=== PATIENT | female | born 1940 | race Caucasian/White ===

== ENCOUNTER 2020-03-10 18:09 | Emergency (ER) | payer OTHER ==
[~2020-03-10] VITALS: Ht 165.1 cm; Wt 74.8 kg
[~2020-03-10 18:09] MED LIST: ATENOLOL25 MG PO; SINGULAIR10 MG PO
[2020-03-10] MEDS ORDERED: CLARITIN10 M2 (18:30)
[2020-03-10] MEDS ORDERED: AMLODIPINE-OLM1 EAC2 (18:31)
[2020-03-10] MEDS ORDERED: DURACHOL 3,7751 EACH (18:31)
[2020-03-10] MEDS ORDERED: GALANTAMINE HBR24 MG (18:32)
[2020-03-10] MEDS ORDERED: IRBESARTAN-HCT1 EACH (18:32)
[2020-03-10] MEDS ORDERED: ZEGERID 40 MG1 EACH (18:33)
[2020-03-10] MEDS ORDERED: NAMENDA5 MG (18:33)
[2020-03-10] MEDS ORDERED: ADULT LOW DOSE81 M1 (18:34)
[2020-03-10] MEDS ORDERED: DITROPAN XL5 MG (18:34)
== END 2020-03-10 21:14 | disposition home or self-care (01) ==
LOC: ER 18:09
DX: R55 Syncope and collapse (principal); R53.1 Weakness; Z03.818 Encounter for observation for suspected exposure to other biological agents ruled out

== ENCOUNTER 2022-06-10 15:36 | Emergency (ER) | payer OTHER ==
[~2022-06-10] VITALS: Ht 167.6 cm; Wt 90.7 kg
[~2022-06-10 15:36] MED LIST changes: +ADULT LOW DOSE81 M1; +AMLODIPINE-OLM1 EAC2; +CLARITIN10 M2; +DITROPAN XL5 MG; +DURACHOL 3,7751 EACH; +GALANTAMINE HBR24 MG; +IRBESARTAN-HCT1 EACH; +NAMENDA5 MG; +ZEGERID 40 MG1 EACH
== END 2022-06-10 19:33 | disposition home or self-care (01) ==
LOC: ER 15:36
DX: G30.9 Alzheimer's disease, unspecified (principal); F02.C11 Dementia in other diseases classified elsewhere, severe, with agitation; R53.1 Weakness

== ENCOUNTER 2022-12-23 13:12 | Emergency (ER) | payer OTHER ==
[~2022-12-23] VITALS: Ht 167.6 cm; Wt 54.4 kg
== END 2022-12-23 15:34 | disposition home or self-care (01) ==
LOC: ER 13:12
PROVIDERS: General Practice
DX: R55 Syncope and collapse (principal); I10 Essential (primary) hypertension; G30.8 Other Alzheimer's disease; F02.80 Dementia in other diseases classified elsewhere, unspecified severity, without behavioral disturbance, psychotic disturbance, mood disturbance, and anxiety; R53.1 Weakness